=== PATIENT | male | born 1990 | race Caucasian/White ===

== ENCOUNTER → 2022-11-07 12:04 | Outpatient (CLI) | payer OTHER, SELFPAY ==
--- NOTE | 2022-11-07 | DI.MG.S_ITS ---
MALE BILATERAL DIGITAL DIAGNOSTIC MAMMOGRAM 3D/2D: 11/07/2022 CLINICAL: Benign lipomatous neoplasm of skin. No prior exams were available for comparison. There is gynecomastia in both breasts, right greater than left, that correlates with palpable abnormality. No significant masses, calcifications, or other findings are seen in either breast. IMPRESSION: INCOMPLETE: NEEDS ADDITIONAL IMAGING EVALUATION Asymmetric gynecomastia is present and corresponds to the palpable abnormality. Ultrasound is recommended for full evaluation of this area. This was performed immediately following this exam. This exam was interpreted at Station ID: [id number]. NOTE: For mammograms, a report in lay terms will be sent to the patient. Approximately 15% of breast malignancies will not be visualized mammographically. In the management of a palpable breast mass, a negative mammogram must not discourage biopsy of a clinically suspicious lesion. Electronically Signed By: Socorro [email or web address]/:11/07/2022 13:01:28 ACR BI-RADS Category 0: Incomplete [id number]
--- NOTE | 2022-11-07 | DI.US.S_ITS ---
LIMITED ULTRASOUND OF RIGHT BREAST: 11/07/2022 CLINICAL: Palpable right breast lump and focal pain. Comparison is made to exam dated: 11/07/2022 mammogram - [facility]. Color flow ultrasound of the right breast retroareolar was performed. Eckert scale images of the real-time examination were reviewed. There is gynecomastia in the right breast that correlates with palpable abnormality. No other suspicious sonographic findings. IMPRESSION: BENIGN There is no sonographic evidence of malignancy. Asymmetric gynecomastia is present and may be symptomatic. The patient should follow up with his primary care physician to discuss possible contributing factors including medication changes, and hormonal or lifestyle factors. Findings and recommendations were conveyed to the patient at time of exam. This exam was interpreted at Station ID: [id number]. Electronically Signed By: Socorro sepulveda/:11/07/2022 13:03:04 Entry: - 11/08/2022 10:00:17 letter sent: Male Normal Exam Ultrasound BI-RADS: 2 Benign
== END ==
PROVIDERS: PCP Nurse Practitioner; Referring Provider Nurse Practitioner; Visit Provider Nurse Practitioner
DX: R92.8 Other abnormal and inconclusive findings on diagnostic imaging of breast (principal); N63.12 Unspecified lump in the right breast, upper inner quadrant; D17.30 Benign lipomatous neoplasm of skin and subcutaneous tissue of unspecified sites; N62 Hypertrophy of breast
CPT/HCPCS: 76642; 77066; G0279